=== PATIENT | female | born 1985 | race Two or more races ===

== ENCOUNTER → 2017-06-28 | Outpatient (REF) | payer OTHER | LOC: M SFHCLERA 13:19 | PROVIDERS: ATTEND Nurse Practitioner Family | DX: R30.0 Dysuria (principal) ==

== ENCOUNTER → 2017-08-02 | Outpatient (REF) | payer OTHER ==
[2017-08-02 18:00] LABS: CHLAMYDIA DNA AMPLIFICATION NEGATIVE (NEGATIVE); GC DNA AMPLIFICATION NEGATIVE (NEGATIVE)
== END ==
LOC: M SFHCLERA 13:31
DX: R30.0 Dysuria (principal)
CPT/HCPCS: 87086

== ENCOUNTER → 2017-09-01 | Outpatient (REF) | payer OTHER | LOC: M SFHCLERA 17:38 | DX: R30.0 Dysuria (principal) | CPT/HCPCS: 87086 ==